=== PATIENT | female | born 1980 | race Caucasian/White ===

== ENCOUNTER → 2019-11-20 10:35 | Outpatient (CLI) | payer BC, SELFPAY ==
--- NOTE | ~2019-11-20 | US_ITS ---
EXAMINATION: US pelvic complete w TV EXAM DATE: 11/20/2019 11:27 INDICATION: Pelvic and perineal pain, left-sided. TECHNIQUE: Pelvic transabdominal and transvaginal sonogram was performed. There are multiple graysca le and Doppler images available for interpretation. There is no prior study for comparison. FINDINGS: Uterus measures 7.7 x 5.9 x 6.3 cm, with a posterior myometrial fibroid measuring about 4 cm. Endometrial stripe measures 7 mm, within normal limits. There is no free pelvic fluid. Right adnexa: The ovary measures 4.2 x 2.9 x 3.0 cm and is morphologically normal. Ovarian vascular f low confirmed. Left adnexa: The ovary is not identified. There is no adnexal mass. IMPRESSION: 1. Posterior myometrial fibroid. Reviewed, dictated and finalized at location A.
== END ==
PROVIDERS: Visit Provider Obstetrics & Gynecology
DX: R10.2 Pelvic and perineal pain (principal)
CPT/HCPCS: 76830; 76856

== ENCOUNTER 2024-10-08 15:57 | Outpatient (CLI) | payer BC, SELFPAY ==
--- NOTE | ~2024-10-08 | MM_ITS ---
EXAMINATION: MM screening destini BI w diana HISTORY: Screening TECHNIQUE: Craniocaudal and mediolateral oblique 3-D tomosynthesis images were obtained and synthetic 2-D images were generated. CAD analysis was submitted and interpreted. COMPARISON: No prior mammogram is available for comparison at this institution. BREAST PARENCHYMAL COMPOSITION: Not Dense: The breasts are almost entirely fatty. FINDINGS: There is no evidence of suspicious mass, calcification, or architectural distortion to sugg est malignancy in either breast. There has been no suspicious interval change. IMPRESSION: 1. No mammographic evidence of malignancy. 2. Recommend routine screening mammography in one year. BI-RADS Category 1: Negative Reviewed, dictated and finalized at location B.
--- OUTSIDE RECORDS SUMMARY | 2024-10-08 16:02 | XMS_ITS | Encounter Summary ---
Author Organization [facility] Address [facility] [place] [address] Care Team Providers Care Street Light Inspector Name Role Phone Gregory Denson MD Primary Care Provider [phone] Encounter Details Date Type Department Care Team (Late st Contact Info) Description 01/16/2020 Prep for Procedure [facility] Pre-Admission [facility] [place], [place] [id number] Hazel Peguero MD [address] [place] [address] Social History Tobacco Use Types Packs/Day Years Used Date Smoking Tobacco: Every Day Cigarettes 0.5 25 Smokeless Tobacco: Never Alcohol Use Standard Drinks/Week Comments Never 0 (1 standard drink = 0.6 oz pur e alcohol) AUDIT-C Answer Date Recorded Q1: How often do you have a drink containing alc ohol? Never 01/16/2020 Average Number of Drinks Not on file 020 Frequency of Binge Drinking Not on file 07/2019 Comments No Sex and Gender Information Value Date Recorded Sex Assigned at Female 05/16/2024 6:54 AM GAS INSPECTOR Legal Sex Female 2:45 PM CDT Gender Identity Not on file Sexual Orientation Not on file COVID-19 Exposure Response Date Recorded In the last month, have you been in contact with someone who was confirmed or suspected to have Coronavirus / COVID-19? Yes 01/16/2020 2:56 PM GAS INSPECTOR documented as of this encounter Functional Status documented as of this encounter Plan of Treatment Not on file documented as of this encounter Results * PRE-SURGICAL/PRE-PROCEDURE CORONAVIRUS (COVID 19) (01/24/2020 10:16 AM GAS INSPECTOR) CORONAVIRUS SARS COV 2 PCR (RESP) NOT DETECTED NOT DETECTED 01/25/2020 9:12 PM GAS INSPECTOR [facility] [employer] [facility] Comment: A Not Detected (negative) test result for this test means that SARS- CoV-2 RNA was not present in the specimen above the limit of detection. A negative result does not rule out the possibility of COVID-19 and should not be used as the sole basis for treatment or patient management decisions. If COVID-19 is still suspected, based on exposure history together with other clinical findings, re-testing should be considered in consultation with public health authorities. Laboratory test results should always be considered in the context of clinical observations and epidemiological data in making a final diagnosis and patient management decisions. Please review the Fact Sheets and FDA authorized labeling available for health care providers and patients using the following websites: https://www.VetCloud.Autobutler/home/Covid-19/HCP/QuestIVD/fact- sheet.html https://www.VetCloud.Autobutler/home/Covid-19/Patients/ QuestIVD/fact-sheet.html This test has been authorized by the FDA under an Emergency Use Authorization (EUA) for use by authorized laboratories. Due to the current public health emergency, [employer] is receiving a high volume of samples from a wide variety of swabs and media for COVID-19 testing. In order to serve patients during this public health crisis, samples from appropriate clinical sources are being tested. Negative test results derived from specimens received in non-commercially manufactured viral collection and transport media, or in media and sample collection kits not yet authorized by FDA for COVID-19 testing should be cautiously evaluated and the patient potentially subjected to extra precautions such as additional clinical monitoring, including collection of an additional specimen. Methodology: Nucleic Acid Amplification Test (NAAT) includes RT-PCR or TMA Additional information about COVID-19 can be found at the [employer] website: www.globalscholar.com.Autobutler/Covid19. Test performed at [facility] [place] [address] [place] [address] Director: LATANYA PADILLA DO,MPH FIRST TEST YES 01/24/2020 11:29 AM GAS INSPECTOR [facility] EMPLOYED IN HEALTHCARE NO 01/24/2020 11:29 AM [facility] SYMPTOMATIC DEFINED BY CDC NO 01/24/2020 11:29 AM [facility] DATE OF SYMPTOM ONSET NO 01/24/2020 11:39 AM [facility] HOSPITALIZATION STATUS NO 01/24/2020 11:29 AM [facility] PATIENT IN ICU NO 01/24/2020 11:29 AM [facility] RESIDENT OF [facility] NO 01/24/2020 11:29 AM [facility] NOT 01/24/2020 11:29 AM [facility] PATIENT'S RACE WHITE OR 01/24/2020 11:29 AM [facility] ETHNICITY NONHISPANIC 01/24/2020 11:29 AM [facility] SOURCE (QST) NASOPHARYNGEAL SWAB 01/24/2020 11:29 AM [facility] NASOPHARYNGEAL SWAB / Unknown 01/24/2020 10:16 AM GAS INSPECTOR us Hazel Peguero MD MICROBIOLOGY - GENERAL O RDERABLES Final Result [facility] [address] [place] [address], [employer] [facility] [address] [place] [address], * TYPE & SCREEN (01/24/2020 10:06 AM GAS INSPECTOR) ABO/RH O POSITIVE 01/24/2020 12:31 PM [facility] ANTIBODY SCREEN NEGATIVE 01/24/2020 12:31 PM [facility] SAMPLE EXPIRATION 01/30/2020,2 359 01/27/2020 7:53 AM [facility] COMMENT NO HISTORY OF TRANSFUSIONS , OR ANTIBODIES, NEW SPECIMEN NOT NEEDED 01/27/2020 7:53 AM [facility] 01/24/2020 10:0 6 AM GAS INSPECTOR Hazel Peguero MD BLOOD BANK TEST ORDERABL ES Final Result [facility] [address] [place] [address], [place] [phone] * (ABNORMAL) CBC W/DIFF AUTOMATED (01/24/2020 10:06 AM GAS INSPECTOR) WBC 5.9 4.5 - 11.0 x10'3/uL 01/24/2020 10:27 AM [facility] RBC 4.57 4.20 - 5.40 x10'6/uL 01/24/2020 10:27 AM [facility] HGB 10.9(L) 12.0 - 16.0 G/DL 01/24/2020 10:27 AM [facility] HCT 36.8(L) 38.0 - 48.0 % 01/24/2020 10:27 AM [facility] MCV 80.5(L) 81.0 - 99.0 FL 01/24/2020 10:27 AM [facility] MCH 23.9(L) 27.0 - 31.0 PG 01/24/2020 10:27 AM [facility] MCHC 29.6(L) 32.0 - 36.0 G/DL 01/24/2020 10:27 AM [facility] RDW 17.3(H) 11.5 - 14.5 % 01/24/2020 10:27 AM [facility] PLT 317 130 - 400 x10'3/uL 01/24/2020 10:27 AM [facility] MPV 11.1 9.3 - 12.2 FL 01/24/2020 10:27 AM [facility] DIFFERENTIAL TYPE AUTOMATED DIFFERENTIAL 01/24/2020 10:27 AM [facility] NEUTROPHILS % 55.1 % 01/24/2020 10:27 AM [facility] LYMPHOCYTES % 26.6 % 01/24/2020 10:27 AM [facility] MONOCYTES % 14.1 % 01/24/2020 10:27 AM [facility] EOSINOPHILS 2.7 % 01/24/2020 10:27 AM [facility] BASOPHILS 1.0 % 01/24/2020 10:27 AM [facility] IMMATURE GRANS % 0.5 % 01/24/20 20 10:27 AM [facility] ABS. NEUTROPHILS TOTAL 3.23 1.80 - 7.70 x10'3/uL 01/24/2020 10:27 AM [facility] ABS. LYMPHOCYTES 1.56 1.00 - 4.80 x10'3/uL 01/24/2020 10:27 AM [facility] ABS. MONOCYTES 0.83 0.24 - 0.86 x10'3/uL 01/24/2020 10:27 AM [facility] ABS. EOSINOPHILS 0.16 0.04 - 0.36 x10'3/uL 01/24/2020 10:27 AM [facility] ABS. BASOPHILS 0.06 0.01 - 0.08 x10'3/uL 01/24/2020 10:27 AM [facility] ABS. IMMATURE GRANULOCYTES 0.03 0.00 - 0.49 x10'3/uL 01/24/2020 10:27 AM [facility] 01/24/2020 10:0 6 AM GAS INSPECTOR Hazel Peugero MD LABORATORY Final Re sult [facility] [address] [place] [address], documented in this encounter Visit Diagnoses Diagnosis Pre-op exam- Primary Preoperative examination, unspecified documented in this encounter Additional Health Concerns Infection Onset Date Last Indicated Resolved Time COVID-19 Rule Out 01/24/2020 01/24/2020 01/25/2020 9:12 PM GAS INSPECTOR documented as of this encounter Care Teams Street Light Inspector Relationship Specialty Start Date End Date Gregory Denson MD [address] [place] [address] PCP - General FAMILY PRACTICE 01/16/20 documented as of this encounter
--- OUTSIDE RECORDS SUMMARY | 2024-10-08 16:02 | XMS_ITS | Patient Health Record ---
Author Organization [facility] Address [address] [place] [address] Care Team Providers Care Customer Data Technician Name Role Phone PHU BEDOLLA Unavailable [phone] Reason For Referral No Information Social History Social History Additional Details Category Social Info Options Details Migrated Social History Migrated Social History Occupation: desk work; Marital Status: Single Children: None Exercise: Primary form of exercise is gym. Problems Problem Type SNOMED Code ICD Code Onset Dates Problem Status W/U Status Risk Notes Problem Cervicalgia (25841453) Cervicalgia (M54.2) 8 Problem resolved confirmed [id number] 178- Problem Redirect Health (RDH) 8 Problem resolved confirmed [id number] 178- Plan Of Treatment No Information Medical (General) History Surgical History Surgery Date(Month/Year) : retinal 2007;
--- OUTSIDE RECORDS SUMMARY | 2024-10-08 16:02 | XMS_ITS | Clinical Summary ---
Author Organization [facility] Address [address] [place] [address] Care Team Providers Care Soft Sugar Supervisor Name Role Phone Gregory Denson MD Primary Care Provider [phone] Allergies No known active allergies Medications cyclobenzaprine 5 MG tablet Take 5 mg by mouth 3 (three) times daily as needed. 11/11/2019 Active Pediatric Multivit-Minera ls-C (COMPLETE MULTI-VITAMIN OR) Active probiotic capsule Take 1 capsule by mouth 3 (three) times daily with meals. Active HYDROcodone-armida taminophen 5-325 MG tabletIndicatio ns:Acute Pain < 3 Day Supply Take 1 tablet by mouth every 6 (six) hours as needed for Pain. 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, frozen pelvis; adhesions of bowel to uterus; uterus adhesed to pelvic العراقي S/P abdominal supracervical subtotal hysterectom y 01/27/2020 Family History Medical History Relation Comments Cancer Father lung Diabetes Father Hypertension Father Hypertension Mother Relation Status Comments Father Alive Mother Alive Social History Tobacco Use Types Packs/Day Years Used Date Smoking Tobacco: Every Day Cigarettes 0.5 25 Smokeless Tobacco: Never Comments:trying to quit Alcohol Use Standard Drinks/Week Comments Never 0 [...] Sex Assigned at Female 05/16/2024 6:54 AM FORKLIFT OPERATOR Legal Sex Female 2:45 PM CDT Gender Identity Not on file Sexual Orientation Not on file Last Filed Vital Signs Vital Sign Reading Time Taken Comments Blood Pressure 121/79 01/28/2020 9:08 AM FORKLIFT OPERATOR Pulse 83 01/28/2020 9:08 AM FORKLIFT OPERATOR Temperature 36.8 C (98.2 F) 01/28/2020 9:08 AM FORKLIFT OPERATOR Respiratory Rate 18 01/28/2020 9:08 AM FORKLIFT OPERATOR Oxygen Saturation 99% 01/28/2020 9:08 AM FORKLIFT OPERATOR Inhaled Oxygen Concentration - - Weight 102.6 kg (226 lb 3.1 oz) 01/27/2020 6:39 AM FORKLIFT OPERATOR Height 157.5 cm (5' 2) 01/27/2020 6:39 AM FORKLIFT OPERATOR Body Mass Index 41.37 01/27/2020 6:39 AM FORKLIFT OPERATOR Plan of Treatment Health Maintenance Due Date Last Done Comments Colorectal Cancer Screening Colonoscopy (10 Years) 1978 Annual Physical 1981 Hepatitis C 1996 DTaP, Tdap and Td Vaccines ( 1 - Tdap) 1997 Hepatitis B Vaccines (1 of 3 - 19+ 3-dose series) 1997 Pneumococcal Vaccine: Pediatrics (0 to 5 Years) and At-Risk Patients (6 to 49 Years) (1 of 2 - PCV) 1997 HPV Vaccines (1 - 3-dose SCD M series) 2005 Mammogram Screening 2018 COVID-19 Vaccine (2023-2 5 season) 2023 Cervical Cancer Screening Pa p Smear (Age 30 to 64) Every 3 Years 05/15/2027 05/14/2024, 09/15/2020 Cervical Cancer Screening Pa p with HPV Testing (Age 30 to 64) Every 5 Years 05/14/2029 05/14/2024, 09/15/2020 Cervical Cancer Screening wi th HPV 05/14/2029 Meningococcal B Vaccine Aged Out No l onger eligible based on patient's age to complete this topic Meningococcal Vaccine Aged Out No mary iron eligible based on patient's age to complete this topic RSV Immunizations Under 20 Months Aged Out No longer eligible b ased on patient's age to complete this topic Procedures Procedure Name Priority Date/Time Associated Diagnosis Comments HUMAN PAPILLOMAVIRUS, HIGH-RISK TYPES Routine 05/14/2024 12:00 PM FORKLIFT OPERATOR CYTOPATH CERV/VAG THIN LAYER Routine 05/14/2024 12:00 AM FORKLIFT OPERATOR from Last 3 Months or Most Recently Relevant to Health Maintenance Results * HUMAN PAPILLOMAVIRUS, HIGH-RISK TYPES (05/14/2024 12:00 PM FORKLIFT OPERATOR) SPEC DESCRIPTION CERVIX 05/17/19 8:07 AM FORKLIFT OPERATOR [facility] HPV DNA HIGH RISK NEGATIVE NEGATIVE 05/17/2024 2:35 PM FORKLIFT OPERATOR [facility] Comment:SEE CYTOLOGY REPORT 05/14/2024 12:0 0 PM FORKLIFT OPERATOR us Hazel Peguero MD PATHOLOGY/CYTOLOGY ORDER EDNA Final Result [facility] [address] [place] [address], * Cytopath Cerv/Vag Thin Layer (05/14/2024 12:00 AM FORKLIFT OPERATOR) THIN PREP PAP [facility] [address] [place] [address] Department of Pathology Pathology Report CERVICAL/VAGINAL PAP SMEAR REPORT Name: CESAR ALVARES Age: 8 1980 (Age: 43) Location: [facility] Sex: F Collected Date: 05/14/2024 [facility] #: [id number] Date Received: 05/16/2024 Date Reported: 05/20/2024 Provider: HAZEL PEGUERO MD INTERPRETATION CERVICAL/ENDOCERVI SIMRAN: SATISFACTORY FOR EVALUATION. ENDOCERVICAL/TRANS FORMATION ZONE COMPONENT PRESENT. NEGATIVE FOR INTRAEPITHELIAL LESION OR MALIGNANCY. NEGATIVE FOR HIGH RISK HPV. The FDA approved Aptima HPV assay is an in vitro nucleic acid amplification test for the qualitative detection of E6/E7 viral messenger RNA (mRNA) from 14 high-risk types of human papillomavirus (HPV) in cervical specimens. The high-risk HPV types detected by the assay include: 16,18,31,33,35,39, 45,51,52,56,58,59, 66, and 68. Electronically Signed Out By JAK Calderón (ASCP) CLINICAL HISTORY Z12.4 SCREEN FOR MALIGNANT NEOPLASM OF CERVIX SCREENING PAP ThinPrep Pap Test with HR HPV testing in patient > 30 years requested. Date of Last Menstrual Period: NOT GIVEN Menstrual Status: Not given Contraceptive History: Not given SPECIMEN SUBMITTED CERVICAL/ENDOCERVI SIMRAN Specimen Received:1 Thin Prep Vial, Image Assisted Pap (SMD) Please note: The Pap smear is not a diagnostic test. It is a screening test. Negative results on combined screening (Pap test and HPV-DNA) have a high negative predictive value (99.1-100 percent) for cervical cancer. The pap test is not effective in detecting cervical adenocarcinoma. [facility] 05/14/2024 05/16/2024 7:0 4 AM FORKLIFT OPERATOR Comment:CERVICAL/ENDOCERVICA L us Hazel Peguero MD PATHOLOGY/CYTOLOGY ORDER EDNA Final Result [facility] [address] [place] [address], from Last 3 Months or Most Recently Relevant to Health Maintenance Insurance Advance Directives * Full Code (Latest Code Status on File) Date Activated Date Inactivated Comments 01/27/2020 11:48 AM 01/28/2020 2:49 PM Care Teams Soft Sugar Supervisor Relationship Specialty Start Date End Date Gregory Denson MD [address] [place] [address] PCP - General FAMILY PRACTICE 01/16/20
--- OUTSIDE RECORDS SUMMARY | 2024-10-08 16:02 | XMS_ITS | Encounter Summary ---
Author Organization [facility] Address [address] [place] [address] Care Team Providers Care Reservoir Caretaker Name Role Phone Gregory Denson MD Primary Care Provider [phone] Encounter Details Date Type Department Care Team ([facility] st Contact Info) Description 01/28/2020 Hospital Follow-up Call [facility] [place] [address] Rachna Garcia RN Social History Tobacco Use Types Packs/Day Years [...] Sex Assigned at Female 05/16/2024 6:54 AM BAND RIPSAW OPERATOR Legal Sex Female 2:45 PM CDT Gender Identity Not on file Sexual Orientation Not on file COVID-19 Exposure Response Date Recorded In the last month, have you been in contact with someone who was confirmed or suspected to have Coronavirus / COVID-19? No / Unsure 01/27/2020 5:33 AM BAND RIPSAW OPERATOR documented as of this encounter Plan of Treatment Not on file documented as of this encounter Visit Diagnoses Not on filedocumented in this encounter Care Teams Reservoir Caretaker Relationship Specialty Start Date End Date Gregory Denson MD [address] [place] [address] PCP - General FAMILY PRACTICE 01/16/20 documented as of this encounter
== END 2024-10-08 15:58 | disposition home or self-care (01) ==
LOC: ANHIMG 15:58
PROVIDERS: Visit Provider Obstetrics & Gynecology
DX: Z12.31 Encounter for screening mammogram for malignant neoplasm of breast (principal)
CPT/HCPCS: 77063; 77067